=== PATIENT | female | born 1995 | race Two or more races ===

== ENCOUNTER 2017-07-05 21:25 | Emergency (ER) | payer SELFPAY ==
[~2017-07-05] VITALS: Ht 167.6 cm; Wt 63.5 kg
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
[2017-07-05 22:54] LABS: BASOPHILS % (AUTO) 0.1 % (0.0-2.0); EOSINOPHILS # (AUTO) 0.1 /CMM (0.0-0.7); EOSINOPHILS % (AUTO) 1.3 % (0.0-6.0); HEMATOCRIT 37 % (33-45); HEMOGLOBIN 12.4 g/dL (11.5-14.8); LYMPHOCYTES % (AUTO) 21.1 % (20.0-44.0); MEAN CORPUSCULAR HEMOGLOBIN 28 PG (26.0-33.0); MEAN CORPUSCULAR HGB CONC 34 g/dl (31.0-36.0); MEAN CORPUSCULAR VOLUME 82 fL (82-100); MONOCYTES # (AUTO) 0.5 /CMM (0.1-1.30); MONOCYTES % (AUTO) 5.1 % (2.0-12.0); NEUTROPHILS # (AUTO) 6.8 /CMM (1.8-8.9); NEUTROPHILS % (AUTO) 72.4 % (43.0-81.0); PLATELET COUNT (AUTO) 297 /CMM (150-450); RDW COEFFICIENT OF VARIATION 14.2 (11.5-15.0); RED BLOOD CELL COUNT(AUTO) 4.47 MIL/uL (4.0-5.2); WHITE BLOOD COUNT (AUTO) 9.4 K/uL (4.3-11.0)
[2017-07-05 23:06] LABS: CALCIUM, SERUM 8.7 mg/dL (8.5-10.1); CARBON DIOXIDE 26 mmol/L (21-32); CHLORIDE 105 mmol/L (98-107); CREATININE 0.6 mg/dL (0.6-1.3); GLUCOSE 94 mg/dL (74-106); POTASSIUM 3.4 mmol/L (3.5-5.1); SODIUM SERUM 141 mmol/L (136-145); UREA NITROGEN, BLOOD 14 mg/dL (7-18)
[2017-07-05 23:12] LABS: ALANINE AMINOTRANSFERASE 26 U/L (12-78); ALBUMIN 3.8 g/dL (3.4-5.0); ALKALINE PHOSPHATASE 87 U/L (46-116); ASPARTATE AMINOTRANSFERASE 6 U/L (15-37); BILIRUBIN,DIRECT 0.1 mg/dL (0.0-0.2); BILIRUBIN,TOTAL 0.4 mg/dL (0.2-1.0)
[2017-07-05 23:14] LABS: ACETAMINOPHEN 0 ug/ml (10-30); ALCOHOL, BLOOD < 3 mg/dL (0-0); SALICYLATE 1.5 mg/dL (2.8-20.0)
--- NOTE | 2017-07-06 02:10 | NUR ---
pt resting in gurney, no signs of distress noted. pt vital signs normal. will cont to monitor pt.
--- NOTE | 2017-07-06 06:05 | NUR ---
Pt awake and alert in [facility]. a/ox4. No signs of distress noted pt vital signs stable.
--- NOTE | 2017-07-06 08:49 | NUR ---
Rajwinder mims in ED - 07/06/17 at 0850 by RBATACLAN EKG COMPLETED, NSR NOTED WITHOUT ECTOPY
--- NOTE | 2017-07-06 09:43 | NUR ---
TAVIA STITCHER TAPE CONTROLLED MACHINE AT BEDSIDE TO SPEAK WITH PATIENT
--- NOTE | 2017-07-06 09:43 | NUR ---
TAVIA SANTOS AT BEDSIDE
--- NOTE | 2017-07-06 11:49 | NUR ---
PT IS AWAKE. AMBULATORY W/ STEADY GAIT. WAS PROVIDED W/ [facility]. D/C IN STABLE CONDITION.
[2017-07-06 11:52] VITALS: BP 124/60
== END 2017-07-06 11:53 | disposition home or self-care (01) ==
LOC: ER 21:27
DX: R41.82 Altered mental status, unspecified (principal); R79.89 Other specified abnormal findings of blood chemistry
CPT/HCPCS: 36415; 80048; 80076; 80329; 82962; 85025; 93005; 99285; A4606; G0480 ×2; Z7610